=== PATIENT | male | born 1945 | race Caucasian/White ===

== ENCOUNTER 2018-05-06 11:02 | Day surgery (SDC) | payer MEDICARE, OTHER ==
[2018-05-02 12:54] LABS: BASOPHILS % (AUTO) 0.7 % (0-1); EOSINOPHILS # (AUTO) 0.3 X10'3 (0-0.9); EOSINOPHILS % (AUTO) 5.6 % (0-6); HEMATOCRIT 48.7 % (42.0-52.0); HEMOGLOBIN 16.4 g/dl (14.0-17.9); LYMPHOCYTES # (AUTO) 1.3 X10'3 (1.1-4.8); LYMPHOCYTES % (AUTO) 21.2 % (21-51); MEAN CORPUSCULAR HEMOGLOBIN 31.3 PG (27.0-31.0); MEAN CORPUSCULAR HGB CONC 33.7 % (33.0-36.5); MEAN CORPUSCULAR VOLUME 92.7 FL (78-98); MEAN PLATELET VOLUME 8.4 FL (7.4-10.4); MONOCYTES # (AUTO) 0.6 X10'3 (0-0.9); MONOCYTES % (AUTO) 10.6 % (2-12); NEUTROPHILS # (AUTO) 3.7 X10'3 (1.8-7.7); NEUTROPHILS % (AUTO) 61.9 % (42-75); PLATELET COUNT 198 X10'3 (140-440); RED BLOOD COUNT 5.25 X10'6 (4.70-6.10); RED CELL DISTRIBUTION WIDTH 13.2 % (11.5-14.5)
[2018-05-02 13:04] LABS: PARTIAL THROMBOPLASTIN TIME 34 SECONDS (22-32); PROTHROMBIN TIME 20.5 SECONDS (9.0-12.0)
[2018-05-02 13:11] LABS: ALANINE AMINOTRANSFERASE 27 U/L (12-78); ALBUMIN 3.5 G/DL (3.4-5.0); ALBUMIN/GLOBULIN RATIO 0.9 (1.1-1.5); ALKALINE PHOSPHATASE 74 IU/L (46-116); ANION GAP 9 (8-16); ASPARTATE AMINO TRANSFERASE 26 U/L (10-37); BILIRUBIN,TOTAL 0.5 MG/DL (0.1-1.0); BLOOD UREA NITROGEN 27 MG/DL (7-18); BUN/CREATININE RATIO 18.4 (5.4-32.0); CHLORIDE 102 MMOL/L (99-107); CREATININE 1.47 MG/DL (0.60-1.10); SODIUM 143 MMOL/L (135-145); TOTAL CARBON DIOXIDE 32.5 MMOL/L (24-32); TOTAL PROTEIN 7.4 G/DL (6.4-8.2); eGFR 47 ML/MIN
[2018-05-02 13:14] LABS: GLUCOSE 137 MG/DL (70-104)
[2018-05-02 13:23] LABS: POTASSIUM 2.9 MMOL/L (3.5-5.1)
[2018-05-02 13:50] LABS: CLARITY,URINE CLEAR (Clear); COLOR,URINE YELLOW (Yellow); GLUCOSE, URINE NEGATIVE (Neg); KETONES,URINE NEGATIVE (Neg); LEUKOCYTE ESTERASE ,URINE NEGATIVE (Neg); NITRITES, URINE NEGATIVE (Neg); OCCULT BLOOD,URINE TRACE-INTACT (Neg); PROTEIN,URINE 100 mg/dl (Neg); UA COLLECTION TYPE CLN CATCH MIDSTREAM; UROBILINOGEN,URINE 0.2 E.U/dL (0.2-1.0)
[2018-05-02 13:53] LABS: BACTERIA,URINE NONE SEEN /HPF (Neg); MUCUS STRANDS NONE SEEN /LPF (Neg); RBC,URINE 0-2 /HPF (0-2); SQUAMOUS EPITHELIAL CELL,UR NONE SEEN /LPF (FEW); WBC,URINE 0-4 /HPF (0-4)
[~2018-05-06] VITALS: Ht 193 cm; Wt 128.8 kg
[2018-05-06] VITALS (18 sets, daily range): BP systolic 122–160; BP diastolic 60–95
[~2018-05-06 11:02] MED LIST: ASPI-1265 PO; CARV25TA PO; CHOL100046 PO; ESOM40CA30 PO; FENO135C PO; FURO-150 PO; MULT1TAB74 PO; OMEP20TA5 PO; POTA8TAB3 PO; SITA50TA PO; VALS1TAB75 PO; WARF-65 PO
[2018-05-06] MEDS ORDERED: MIDAZolam 5mg/ml 2ml vial IV ONE (11:15)
[2018-05-06] MEDS ORDERED: LIDOcaine 1% (10mg/ml)w/preservative injection 20ml MDV SQ ONE ×2 (11:25→12:05)
[2018-05-06] MEDS ORDERED: normal saline 1000ml 1,000 ML IV SCH (11:25)
[2018-05-06] MEDS ORDERED: LOSA1TAB36 PO (11:48)
[2018-05-06 11:58] LABS: BASOPHILS % (AUTO) 0.6 % (0-1); EOSINOPHILS # (AUTO) 0.3 X10'3 (0-0.9); EOSINOPHILS % (AUTO) 6.2 % (0-6); HEMOGLOBIN 16.4 g/dl (14.0-17.9); LYMPHOCYTES # (AUTO) 1.2 X10'3 (1.1-4.8); LYMPHOCYTES % (AUTO) 21.7 % (21-51); MEAN CORPUSCULAR HEMOGLOBIN 30.7 PG (27.0-31.0); MEAN CORPUSCULAR HGB CONC 33.4 % (33.0-36.5); MEAN CORPUSCULAR VOLUME 91.9 FL (78-98); MEAN PLATELET VOLUME 8.9 FL (7.4-10.4); MONOCYTES # (AUTO) 0.6 X10'3 (0-0.9); MONOCYTES % (AUTO) 11.2 % (2-12); NEUTROPHILS # (AUTO) 3.2 X10'3 (1.8-7.7); NEUTROPHILS % (AUTO) 60.3 % (42-75); PLATELET COUNT 189 X10'3 (140-440); RED BLOOD COUNT 5.34 X10'6 (4.70-6.10); RED CELL DISTRIBUTION WIDTH 13.4 % (11.5-14.5); WHITE BLOOD COUNT 5.3 X10'3 (4.5-11.0)
[2018-05-06 12:00] LABS: CLARITY,URINE CLEAR (Clear); GLUCOSE, URINE NEGATIVE (Neg); KETONES,URINE NEGATIVE (Neg); LEUKOCYTE ESTERASE ,URINE NEGATIVE (Neg); NITRITES, URINE NEGATIVE (Neg); OCCULT BLOOD,URINE NEGATIVE (Neg); PROTEIN,URINE 100 mg/dl (Neg); UROBILINOGEN,URINE 0.2 E.U/dL (0.2-1.0)
[2018-05-06 12:05] LABS: COLOR,URINE DARK YELLOW (Yellow); UA COLLECTION TYPE NON-SPECIFIED
[2018-05-06 12:06] LABS: INR 1.2 INR; PARTIAL THROMBOPLASTIN TIME 30 SECONDS (22-32)
[2018-05-06 12:18] LABS: ALANINE AMINOTRANSFERASE 39 U/L (12-78); ALBUMIN 3.4 G/DL (3.4-5.0); ALBUMIN/GLOBULIN RATIO 0.9 (1.1-1.5); ALKALINE PHOSPHATASE 45 IU/L (46-116); ANION GAP 12 (8-16); ASPARTATE AMINO TRANSFERASE 42 U/L (10-37); BILIRUBIN,TOTAL 0.9 MG/DL (0.1-1.0); BLOOD UREA NITROGEN 26 MG/DL (7-18); BUN/CREATININE RATIO 16.7 (5.4-32.0); CALCIUM 9.3 MG/DL (8.5-10.1); CHLORIDE 101 MMOL/L (99-107); CREATININE 1.56 MG/DL (0.60-1.10); GLUCOSE 112 MG/DL (70-104); POTASSIUM 3.2 MMOL/L (3.5-5.1); SODIUM 143 MMOL/L (135-145); TOTAL CARBON DIOXIDE 30.1 MMOL/L (24-32); TOTAL PROTEIN 7.4 G/DL (6.4-8.2); eGFR 44 ML/MIN
[2018-05-06 12:51] LABS: BACTERIA,URINE FEW /HPF (Neg); RBC,URINE NONE SEEN /HPF (0-2); SQUAMOUS EPITHELIAL CELL,UR FEW /LPF (FEW)
[2018-05-06 15:28] LABS: HEMATOCRIT 46.7 % (42.0-52.0); HEMOGLOBIN 15.7 g/dl (14.0-17.9); MEAN CORPUSCULAR HEMOGLOBIN 30.7 PG (27.0-31.0); MEAN CORPUSCULAR HGB CONC 33.7 % (33.0-36.5); MEAN CORPUSCULAR VOLUME 91.2 FL (78-98); MEAN PLATELET VOLUME 8.6 FL (7.4-10.4); PLATELET COUNT 177 X10'3 (140-440); RED BLOOD COUNT 5.12 X10'6 (4.70-6.10); WHITE BLOOD COUNT 5.8 X10'3 (4.5-11.0)
[2018-05-06 17:33] LABS: HEMOGLOBIN 15.6 g/dl (14.0-17.9); MEAN CORPUSCULAR HEMOGLOBIN 30.8 PG (27.0-31.0); MEAN CORPUSCULAR HGB CONC 33.9 % (33.0-36.5); MEAN CORPUSCULAR VOLUME 90.9 FL (78-98); MEAN PLATELET VOLUME 8.7 FL (7.4-10.4); PLATELET COUNT 182 X10'3 (140-440); RED BLOOD COUNT 5.06 X10'6 (4.70-6.10); RED CELL DISTRIBUTION WIDTH 12.8 % (11.5-14.5); WHITE BLOOD COUNT 6.2 X10'3 (4.5-11.0)
== END 2018-05-06 18:25 | disposition home or self-care (01) ==
LOC: SSTAY O 11:02
PROVIDERS: ATTEND Internal Medicine Critical Care Medicine
DX: E11.22 Type 2 diabetes mellitus with diabetic chronic kidney disease (principal); I12.9 Hypertensive chronic kidney disease with stage 1 through stage 4 chronic kidney disease, or unspecified chronic kidney disease; N18.2 Chronic kidney disease, stage 2 (mild); N28.89 Other specified disorders of kidney and ureter; D89.2 Hypergammaglobulinemia, unspecified; E66.01 Morbid (severe) obesity due to excess calories; Z68.34 Body mass index [BMI] 34.0-34.9, adult; Z79.899 Other long term (current) drug therapy; Z79.84 Long term (current) use of oral hypoglycemic drugs; Z79.01 Long term (current) use of anticoagulants
CPT/HCPCS: 36415; 50200; 76942; 80053; 81001; 82948; 85025; 85027; 85576; 85610; 85730; 86885; 86900; 86901; 86920; 87088; J2001; J2250; 88300; A4620

== ENCOUNTER 2018-09-03 05:28 | Inpatient (IN) | payer MEDICARE, OTHER ==
[2018-09-01 12:34] LABS: BASOPHILS % (AUTO) 0.5 % (0-1); EOSINOPHILS # (AUTO) 0.3 X10'3 (0-0.9); EOSINOPHILS % (AUTO) 4.5 % (0-6); LYMPHOCYTES # (AUTO) 1.6 X10'3 (1.1-4.8); LYMPHOCYTES % (AUTO) 25.1 % (21-51); MEAN CORPUSCULAR HEMOGLOBIN 30.2 PG (27.0-31.0); MEAN CORPUSCULAR HGB CONC 33.6 % (33.0-36.5); MEAN PLATELET VOLUME 8.8 FL (7.4-10.4); MONOCYTES # (AUTO) 0.7 X10'3 (0-0.9); MONOCYTES % (AUTO) 10.6 % (2-12); NEUTROPHILS # (AUTO) 3.7 X10'3 (1.8-7.7); NEUTROPHILS % (AUTO) 59.3 % (42-75); PRE OP HEMATOCRIT 48.1 % (42.0-52.0); PRE OP HEMOGLOBIN 16.2 g/dL (14.0-17.9); PRE OP PLATELET COUNT 178 X10'3 (140-440); RED BLOOD COUNT 5.35 X10'6 (4.70-6.10); RED CELL DISTRIBUTION WIDTH 14.2 % (11.5-14.5)
[2018-09-01 12:41] LABS: CLARITY,URINE CLEAR (Clear); COLOR,URINE YELLOW (Yellow); GLUCOSE, URINE NEGATIVE (Neg); KETONES,URINE NEGATIVE (Neg); LEUKOCYTE ESTERASE ,URINE NEGATIVE (Neg); NITRITES, URINE NEGATIVE (Neg); OCCULT BLOOD,URINE TRACE-INTACT (Neg); PROTEIN,URINE 100 mg/dl (Neg)
[2018-09-01 12:47] LABS: UA COLLECTION TYPE CLN CATCH MIDSTREAM
[2018-09-01 12:49] LABS: ALBUMIN 3.4 G/DL (3.4-5.0); ALBUMIN/GLOBULIN RATIO 0.8 (1.1-1.5); ALKALINE PHOSPHATASE 66 IU/L (46-116); BLOOD UREA NITROGEN 25 MG/DL (7-18); BUN/CREATININE RATIO 17.6 (5.4-32.0); CALCIUM 9.5 MG/DL (8.5-10.1); CHLORIDE 102 MMOL/L (99-107); CREATININE 1.42 MG/DL (0.60-1.10); PRE OP ALT 26 U/L (30-65); PRE OP ANION GAP 8 (8-16); PRE OP AST 23 U/L (10-37); PRE OP BILIRUB, TOTAL 0.5 MG/DL (0.0-1.0); PRE OP SODIUM 142 MMOL/L (135-145); TOTAL CARBON DIOXIDE 32.1 MMOL/L (24-32); TOTAL PROTEIN 7.7 G/DL (6.4-8.2); eGFR 49 ML/MIN
[2018-09-01 12:51] LABS: BACTERIA,URINE NONE SEEN /HPF (Neg); RBC,URINE 0-2 /HPF (0-2); SQUAMOUS EPITHELIAL CELL,UR NONE SEEN /LPF (FEW); WBC,URINE 0-4 /HPF (0-4)
[2018-09-01 12:52] LABS: PRE OP GLUCOSE 110 MG/DL (70-104)
[2018-09-01 12:53] LABS: PRE OP POTASSIUM 3.3 MMOL/L (3.4-5.1)
[2018-09-01 12:55] LABS: HEMOGLOBIN A1C 6.3 % (4.5-6.2)
[2018-09-01 13:17] LABS: PRE OP PROTIME 17.8 SECONDS (9.0-12.0)
[2018-09-01 13:19] LABS: PRE OP INR 1.8 INR
[2018-09-03] VITALS (15 sets, daily range): BP systolic 137–169; BP diastolic 74–108
[~2018-09-03] VITALS: Ht 193 cm; Wt 124.6 kg
[~2018-09-03 05:28] MED LIST changes: -CHOL100046 PO; +CHOL2000 PO; +LOSA1TAB36 PO; -OMEP20TA5 PO; -VALS1TAB75 PO
[2018-09-03] MEDS ORDERED: famotidine 20mg tablet PO ONE (05:30)
[2018-09-03] MEDS ORDERED: cefotetan 2gm/isosm dext IVPB 50 ML IV ONE (05:30)
[2018-09-03] MEDS ORDERED: DOCUMENT DATE & TIME OF BETA-BLOCKER PO ONE (05:30)
[2018-09-03] MEDS ORDERED: LIDOcaine 1% (10mg/ml) 2ml vial ONE (06:01)
[2018-09-03] MEDS: ringers solution, lacted 1,000 ML IV SCH ×2 (06:47→14:55)
[2018-09-03 06:56] LABS: ISTAT CREATININE 1.3 mg/dL (0.8-1.3); ISTAT HGB 16.3 g/dl (14.0-18.0); ISTAT IONIZED CALCIUM 1.22 mmol/L (1.03-1.32); POC BUN/CREATININE RATIO 16.2 (5.4-32.0)
[2018-09-03 07:17] LABS: INR 1.3 INR; PRE OP PARTIAL THROMB. TIME 24 SECONDS (22-35); PROTHROMBIN TIME 13.4 SECONDS (9.0-12.0)
[2018-09-03] MEDS ORDERED: ceFAZolin 1000mg inj ONE (07:26)
[2018-09-03] MEDS ORDERED: BUPIVAcaine/PF 2.5mg/ml (0.25%) 10ml vial ONE (07:27)
[2018-09-03] MEDS ORDERED: Potassium Cl inj 20 MEQ in ringers solution, lacted 1,000 ML IV SCH (08:07)
[2018-09-03] MEDS ORDERED: dextrose 50%-water 50ml dispensing syringe IV PRN ×2 (08:10)
[2018-09-03] MEDS ORDERED: dextrose ORAL solution 15 GM/59 ML bottle PO PRN ×2 (08:10)
[2018-09-03] MEDS ORDERED: insulin Lispro (HumaLOG) vial - multi-dose SQ SCH (08:10)
[2018-09-03] MEDS ORDERED: MESSAGE TO PHARMACY PO ONE (08:10)
[2018-09-03] MEDS ORDERED: naloxone 0.4 mg/ml inj IV PRN (08:10)
[2018-09-03] MEDS ORDERED: glucagon, human recombinant 1mg kit SUBCUT PRN (08:10)
[2018-09-03] MEDS ORDERED: CADD PCA waste documentation MC PRN (08:10)
[2018-09-03] MEDS ORDERED: ondansetron/PF 4mg/2ml inj IV PRN ×2 (08:10→09:15)
[2018-09-03] MEDS ORDERED: sevoflurane 250ml liquid IH ONE (08:21)
[2018-09-03] MEDS ORDERED: midazolam 2 mg/2 ml injection ONE (08:23)
[2018-09-03] MEDS ORDERED: fentaNYL /PF 50mcg/ml 5ml ampule ONE (08:24)
[2018-09-03] MEDS ORDERED: potassium Cl 40MEQ/NS 500ml 500 ML IV ONE (08:50)
[2018-09-03] MEDS: HYDROmorphone/NS 1 mg/ml CADD 50 ML IV SCH ×9 (09:00→23:00)
[2018-09-03] MEDS ORDERED: ringers solution, lacted 1,000 ML IV SCH (09:12)
[2018-09-03] MEDS ORDERED: morphine 4 MG/ML inj SYRINge IV PRN ×2 (09:15)
[2018-09-03] MEDS ORDERED: proCHLORperazine 10 MG/2 ml inj IV PRN (09:15)
[2018-09-03] MEDS ORDERED: labetalol 20mg/4ml (5mg/ml) syringe IV PRN (09:15)
[2018-09-03] MEDS ORDERED: meperidine/PF 25mg/ml syringe IV PRN ×3 (09:15)
[2018-09-03] MEDS ORDERED: rocuronium 10mg/ml inj IV ONE (09:36)
[2018-09-03] MEDS ORDERED: propofol inj 20 ML IV ONE (09:37)
[2018-09-03] MEDS ORDERED: glycopyrrolate 0.2mg/ml inj ONE (09:37)
[2018-09-03] MEDS ORDERED: neostigmine methylsulfate 1 MG/ML 10ml vial ONE (09:37)
--- NOTE | 2018-09-03 10:00 | NUR ---
Received from OR via BED , accompanied by Anesthesiologist DR FLORES and report given by Anesthesiolgist. PATIENT WAKING UP, DENIES PAIN, V/S WNL, CSM INTACT, 3 [place] DRESSING CDI, 20G PIV LUE, F/C DRAINING CLEAR YELLOW URINE. SCD ON.
--- NOTE | 2018-09-03 10:55 | NUR ---
Problems reprioritized. Patient report given, questions answered & plan of care reviewed with HAVEN Almendarez.
--- NOTE | 2018-09-03 11:00 | NUR ---
PATIENT A&OX4, DENIES PAIN, V/S WNL, CSM INTACT, 3 [place] DRESSING CDI, 20G PIV LUE, F/C DRAINING CLEAR YELLOW URINE. SCD ON. PATIENT TAKEN TO 340B WITH ALL BELONGINGS AND HOOKED UP TO MONITORS IN ROOM AND REPORT GIVEN TO OSBALDO OROURKE WHO HAS TAKEN OVER PATIENT CARE.
[2018-09-03] MEDS ORDERED: losartan 50mg tablet PO ONE (15:20)
--- NOTE | 2018-09-03 19:04 | NUR ---
Problems reprioritized. Patient report given, questions answered & plan of care reviewed with HAVEN Artis.
[2018-09-03] MEDS: insulin glargine (Lantus) pen - multi-dose SQ SCH (21:00)
[2018-09-03] MEDS ORDERED: warfarin 3mg tablet PO SCH (21:00)
[2018-09-03] MEDS: carVEDilol 12.5mg tablet PO SCH (22:24)
[2018-09-04] VITALS: BP 163/101
[2018-09-04 00:30] VITALS: BP 151/60
--- NOTE | 2018-09-04 00:30 | NUR ---
Attempted to ambulated patient with aide. Sat patient up and dangled his feet, Patient complained of extreme dizziness and states he his head is spinning. Patient sat up about 10mins and continue to have dizziness and felt his head was spinning. Patient did not think standing would be a good idea. Help patient back to bed. Will attempt again later.
[2018-09-04] MEDS: HYDROmorphone/NS 1 mg/ml CADD 50 ML IV SCH ×12 (01:00→23:00)
[2018-09-04 04:30] VITALS: BP 159/83
[2018-09-04 05:01] LABS: BASOPHILS % (AUTO) 0.2 % (0-1); EOSINOPHILS # (AUTO) 0.2 X10'3 (0-0.9); HEMATOCRIT 44.8 % (42.0-52.0); LYMPHOCYTES # (AUTO) 0.9 X10'3 (1.1-4.8); LYMPHOCYTES % (AUTO) 11.4 % (21-51); MEAN CORPUSCULAR HEMOGLOBIN 30.3 PG (27.0-31.0); MEAN CORPUSCULAR HGB CONC 33.6 g/dL (33.0-36.5); MEAN CORPUSCULAR VOLUME 90.4 FL (78-98); MEAN PLATELET VOLUME 9.1 FL (7.4-10.4); MONOCYTES # (AUTO) 0.8 X10'3 (0-0.9); MONOCYTES % (AUTO) 10.7 % (2-12); NEUTROPHILS # (AUTO) 5.9 X10'3 (1.8-7.7); NEUTROPHILS % (AUTO) 74.7 % (42-75); PLATELET COUNT 165 X10'3 (140-440); RED BLOOD COUNT 4.95 X10'6 (4.70-6.10); RED CELL DISTRIBUTION WIDTH 14.2 % (11.5-14.5); WHITE BLOOD COUNT 7.9 X10'3 (4.5-11.0)
[2018-09-04 05:07] LABS: INR 1.2 INR; PROTHROMBIN TIME 12.2 SECONDS (9.0-12.0)
[2018-09-04 05:12] LABS: ANION GAP 9 (8-16); BLOOD UREA NITROGEN 17 MG/DL (7-18); BUN/CREATININE RATIO 12.4 (5.4-32.0); CALCIUM 9.2 MG/DL (8.5-10.1); CHLORIDE 104 MMOL/L (99-107); CREATININE 1.37 MG/DL (0.60-1.10); GLUCOSE 135 MG/DL (70-104); SODIUM 143 MMOL/L (135-145); TOTAL CARBON DIOXIDE 30.3 MMOL/L (24-32); eGFR 51 ML/MIN
--- NOTE | 2018-09-04 06:00 | NUR ---
CRITICAL POTASSIUM LEVEL THIS MORNING OF 3. DR. CORRIGAN NOTIFIED, ORDERS TO PLACE PATIENT ON K+ REPLACEMENT PROTOCOL.
--- NOTE | 2018-09-04 06:00 | NUR ---
Santos cath removed this morning at 0550. Patient tolerated well. States understanding of using urinal when voiding.
--- NOTE | 2018-09-04 06:40 | NUR ---
Patient in room [facility]. I have received report from HAVEN Artis and had the opportunity to ask questions and assume patient care.
[2018-09-04] MEDS ORDERED: potassium Cl 40MEQ/NS 500ml 500 ML IV PRN ×2 (06:45)
[2018-09-04] MEDS: pantoprazole 40mg Tablet.DR PO SCH (07:14)
[2018-09-04] MEDS: potassium Cl 20 mEq SR tablet PO PRN ×3 (07:15→21:25)
[2018-09-04] MEDS: losartan 50mg tablet PO SCH (07:15)
[2018-09-04] MEDS: furosemide 40mg tablet PO SCH (07:15)
[2018-09-04] MEDS: carVEDilol 12.5mg tablet PO SCH ×2 (07:15→19:30)
[2018-09-04] MEDS: HYDROchlorothiazide 12.5mg capsule PO SCH (07:15)
[2018-09-04] MEDS: enoxaparin 40mg/0.4ml syringe SQ SCH (07:16)
[2018-09-04] MEDS: potassium chloride 8mEq ER tablet PO SCH (07:16)
[2018-09-04] MEDS: aspirin 81mg tab.chew PO SCH (07:16)
[2018-09-04] MEDS: fenofibrate 145mg tablet PO SCH (07:18)
--- NOTE | 2018-09-04 11:33 | NUR ---
Patient in room [facility]. I have received report from HAVEN Zaragoza and had the opportunity to ask questions and assume patient care.
[2018-09-04 11:37] VITALS: BP 143/79
[2018-09-04] MEDS ORDERED: diphenhydrAMINE 50 mg/ml inj IV PRN (13:05)
--- NOTE | 2018-09-04 15:18 | NUR ---
Pt straight cath'd per Dr Lewis order. 500 cc output, pt tolerated well. Will continue to bladder train. If pt continues to retain urine, will replace FC for retention per Dr Lewis.
[2018-09-04 18:00] VITALS: BP 158/84
--- NOTE | 2018-09-04 18:30 | NUR ---
Received report from primary care nurse Criss OROURKE. Assumed patient care. Patient is awake and alert with noted confusion on 3LNC. In no apparent distress with his Elizabeth at his bedside. Will apply TABs alarm to ensure patient safety. Call light and items of frequent use within reach. Will continue to monitor for changes.
--- NOTE | 2018-09-04 18:37 | NUR ---
Problems reprioritized. Patient report given, questions answered & plan of care reviewed with HAVEN Diaz.
[2018-09-04] MEDS: insulin glargine (Lantus) pen - multi-dose SQ SCH (21:00)
[2018-09-04] MEDS: warfarin 3mg tablet PO SCH (21:20)
[2018-09-05] VITALS: BP 125/83
[2018-09-05] MEDS: HYDROmorphone/NS 1 mg/ml CADD 50 ML IV SCH ×6 (01:00→11:30)
[2018-09-05] MEDS ORDERED: LIDOcaine 2% 10ml TOPICAL JELLY (Urojet) MM ONE (04:40)
--- NOTE | 2018-09-05 05:11 | NUR ---
Inserted catheter per order for retention with one successful attempt. Patient tolerated procedure well.
[2018-09-05 05:44] LABS: BASOPHILS % (AUTO) 0.2 % (0-1); EOSINOPHILS # (AUTO) 0.3 X10'3 (0-0.9); EOSINOPHILS % (AUTO) 4.3 % (0-6); HEMATOCRIT 43.4 % (42.0-52.0); HEMOGLOBIN 14.5 g/dl (14.0-17.9); LYMPHOCYTES # (AUTO) 1.2 X10'3 (1.1-4.8); LYMPHOCYTES % (AUTO) 15.7 % (21-51); MEAN CORPUSCULAR HEMOGLOBIN 30.4 PG (27.0-31.0); MEAN CORPUSCULAR HGB CONC 33.4 g/dL (33.0-36.5); MEAN PLATELET VOLUME 9.3 FL (7.4-10.4); MONOCYTES # (AUTO) 0.9 X10'3 (0-0.9); MONOCYTES % (AUTO) 11.3 % (2-12); NEUTROPHILS # (AUTO) 5.4 X10'3 (1.8-7.7); NEUTROPHILS % (AUTO) 68.5 % (42-75); PLATELET COUNT 153 X10'3 (140-440); RED BLOOD COUNT 4.78 X10'6 (4.70-6.10); RED CELL DISTRIBUTION WIDTH 13.9 % (11.5-14.5); WHITE BLOOD COUNT 7.8 X10'3 (4.5-11.0)
[2018-09-05 06:01] LABS: INR 1.2 INR; PROTHROMBIN TIME 11.6 SECONDS (9.0-12.0)
[2018-09-05 06:04] LABS: ALBUMIN 2.8 G/DL (3.4-5.0); ANION GAP 6 (8-16); BLOOD UREA NITROGEN 12 MG/DL (7-18); BUN/CREATININE RATIO 10.9 (5.4-32.0); CALCIUM 8.8 MG/DL (8.5-10.1); CHLORIDE 101 MMOL/L (99-107); GLUCOSE 106 MG/DL (70-104); POTASSIUM 3.3 MMOL/L (3.5-5.1); SODIUM 141 MMOL/L (135-145); TOTAL CARBON DIOXIDE 33.9 MMOL/L (24-32); eGFR 65 ML/MIN
--- NOTE | 2018-09-05 06:30 | NUR ---
Reported off to Andreia RN and Idalia RN. Patient is resting with relaxed and unlabored respirations on 2LNC. In no apparent distress. Call light and items of frequent use within reach.
[2018-09-05 07:00] VITALS: BP 126/75
[2018-09-05] MEDS: enoxaparin 40mg/0.4ml syringe SQ SCH (08:11)
[2018-09-05] MEDS: potassium chloride 8mEq ER tablet PO SCH (08:11)
[2018-09-05] MEDS: aspirin 81mg tab.chew PO SCH (08:12)
[2018-09-05] MEDS: furosemide 40mg tablet PO SCH (08:12)
[2018-09-05] MEDS: HYDROchlorothiazide 12.5mg capsule PO SCH (08:12)
[2018-09-05] MEDS: carVEDilol 12.5mg tablet PO SCH ×2 (08:12→20:46)
[2018-09-05] MEDS: fenofibrate 145mg tablet PO SCH (08:12)
[2018-09-05] MEDS: potassium Cl 20 mEq SR tablet PO PRN ×2 (08:16→18:39)
[2018-09-05] MEDS: losartan 50mg tablet PO SCH (08:31)
[2018-09-05] MEDS: pantoprazole 40mg Tablet.DR PO SCH (08:31)
[2018-09-05] MEDS ORDERED: HYDROcodone/acetaminophen 10/325mg tab PO PRN (15:15)
[2018-09-05 18:00] VITALS: BP 141/89
--- NOTE | 2018-09-05 18:20 | NUR ---
Problems reprioritized. Patient report given, questions answered & plan of care reviewed with Emily OROURKE.
--- NOTE | 2018-09-05 18:38 | NUR ---
Received report from primary care nurse Andreia OROURKE. Assumed patient care. Patient is awake and alert on 2LNC. In no apparent distress playing on his phone. Call light and items of frequent use within reach. Will continue to monitor for changes.
--- NOTE | 2018-09-05 20:30 | NUR ---
Patient refusing to get back to bed from the bedside commode until his arrives from [place]. Explained that its not good for his skin patient stated, "Im waiting for my ."
[2018-09-05] MEDS: warfarin 3mg tablet PO SCH (20:46)
[2018-09-05] MEDS: insulin glargine (Lantus) pen - multi-dose SQ SCH (21:00)
[2018-09-06] VITALS: BP 136/60
[2018-09-06 05:18] LABS: INR 1.2 INR; PROTHROMBIN TIME 12.4 SECONDS (9.0-12.0)
[2018-09-06 05:24] LABS: ALBUMIN 2.8 G/DL (3.4-5.0); ANION GAP 9 (8-16); BLOOD UREA NITROGEN 11 MG/DL (7-18); BUN/CREATININE RATIO 9.7 (5.4-32.0); CALCIUM 9.3 MG/DL (8.5-10.1); CHLORIDE 100 MMOL/L (99-107); CREATININE 1.13 MG/DL (0.60-1.10); GLUCOSE 125 MG/DL (70-104); POTASSIUM 3.3 MMOL/L (3.5-5.1); SODIUM 140 MMOL/L (135-145); TOTAL CARBON DIOXIDE 30.7 MMOL/L (24-32); eGFR 63 ML/MIN
[2018-09-06 05:36] LABS: BASOPHILS % (AUTO) 0.3 % (0-1); EOSINOPHILS # (AUTO) 0.5 X10'3 (0-0.9); EOSINOPHILS % (AUTO) 5.8 % (0-6); HEMATOCRIT 45.1 % (42.0-52.0); HEMOGLOBIN 15.2 g/dl (14.0-17.9); LYMPHOCYTES # (AUTO) 1.4 X10'3 (1.1-4.8); LYMPHOCYTES % (AUTO) 15.6 % (21-51); MEAN CORPUSCULAR HEMOGLOBIN 30.5 PG (27.0-31.0); MEAN CORPUSCULAR HGB CONC 33.7 g/dL (33.0-36.5); MEAN CORPUSCULAR VOLUME 90.6 FL (78-98); MEAN PLATELET VOLUME 9.6 FL (7.4-10.4); MONOCYTES # (AUTO) 1.1 X10'3 (0-0.9); MONOCYTES % (AUTO) 11.9 % (2-12); NEUTROPHILS # (AUTO) 5.9 X10'3 (1.8-7.7); NEUTROPHILS % (AUTO) 66.4 % (42-75); PLATELET COUNT 175 X10'3 (140-440); RED BLOOD COUNT 4.97 X10'6 (4.70-6.10); RED CELL DISTRIBUTION WIDTH 13.9 % (11.5-14.5); WHITE BLOOD COUNT 8.8 X10'3 (4.5-11.0)
--- NOTE | 2018-09-06 06:09 | NUR ---
Reported off to Idalia OROURKE and Andreia RN. Patient is awake and alert on room air. In no apparent distress. Call light and items of frequent use within reach.
[2018-09-06 08:00] VITALS: BP 158/91
[2018-09-06] MEDS: enoxaparin 40mg/0.4ml syringe SQ SCH (08:20)
[2018-09-06] MEDS: HYDROchlorothiazide 12.5mg capsule PO SCH (08:20)
[2018-09-06] MEDS: carVEDilol 12.5mg tablet PO SCH (08:20)
[2018-09-06] MEDS: losartan 50mg tablet PO SCH (08:21)
[2018-09-06] MEDS: potassium chloride 8mEq ER tablet PO SCH (08:22)
[2018-09-06] MEDS: aspirin 81mg tab.chew PO SCH (08:22)
[2018-09-06] MEDS: furosemide 40mg tablet PO SCH (08:22)
[2018-09-06] MEDS: potassium Cl 20 mEq SR tablet PO PRN ×2 (08:22→12:18)
[2018-09-06] MEDS: fenofibrate 145mg tablet PO SCH (08:22)
[2018-09-06] MEDS: pantoprazole 40mg Tablet.DR PO SCH (08:28)
--- NOTE | 2018-09-06 10:00 | NUR ---
Pt has passed gas
[2018-09-06 12:00] VITALS: BP 166/76
--- NOTE | 2018-09-06 15:39 | NUR ---
Pt. discharged at approx. 1530 in a stable condition with his belongings. He left vis w/c and was accompanied by a hospital staff member and his Elizabeth. Reviewed home medications with pt. and incisional care instructions. Bandages sent home with pt. Pt. gave good feedback and is aware he needs to make a follow up jasmina. with MD [facility] office. He is urinating well with no pain. IV discontinued, pressure applied, and bandage applied. Tele removed, cleaned and returned.
== END 2018-09-06 15:37 | disposition home or self-care (01) | DRG 330 ==
LOC: PAS IN 05:28 → EDSTATUS 08:30 → SUR 3N 11:05
PROVIDERS: ADMIT Surgery; ATTEND Surgery
PROC: 0DBK4ZZ Excision of Ascending Colon, Percutaneous Endoscopic Approach (ICD-10-PCS; principal; 2018-09-03 08:21)
DX: C18.2 Malignant neoplasm of ascending colon (principal); C90.00 Multiple myeloma not having achieved remission; E11.9 Type 2 diabetes mellitus without complications; E66.9 Obesity, unspecified; K21.9 Gastro-esophageal reflux disease without esophagitis; I48.91 Unspecified atrial fibrillation; M54.2 Cervicalgia; I25.10 Atherosclerotic heart disease of native coronary artery without angina pectoris; R33.9 Retention of urine, unspecified; G47.30 Sleep apnea, unspecified; G89.29 Other chronic pain; I10 Essential (primary) hypertension; Z95.810 Presence of automatic (implantable) cardiac defibrillator; Z79.899 Other long term (current) drug therapy; Z79.82 Long term (current) use of aspirin; Z79.01 Long term (current) use of anticoagulants; Z82.3 Family history of stroke; Z68.33 Body mass index [BMI] 33.0-33.9, adult
CPT/HCPCS: 36415; 80047; 80048; 80053; 81001; 82948; 83036; 84132; 85025; 85610; 85730; 86885; 86900; 86901; 86920; 87070; 88309; 93005; A7000; C1758; G0378; J0690; J1170; J1200; J1650; J1815; J2250; J2405; J2704; J2710; J3010; J3480; J3490; J7120